=== PATIENT | male | born 1980 | race Caucasian/White ===

== ENCOUNTER 2019-12-03 11:04 | Emergency (ER) | payer OTHER ==
[~2019-12-03] VITALS: Ht 182.9 cm; Wt 81.7 kg
[2019-12-03 14:12] LABS: URINE BILIRUBIN NEGATIVE (Negative); URINE BLOOD NEGATIVE (Negative); URINE CLARITY CLEAR; URINE COLOR YELLOW; URINE GLUCOSE-RANDOM* NEGATIVE (Negative); URINE KETONES NEGATIVE (Negative); URINE LEUKOCYTES-REFLEX NEGATIVE (Negative); URINE NITRITE-REFLEX NEGATIVE (Negative); URINE PROTEIN (DIPSTICK) NEGATIVE (Negative)
[2019-12-03] MEDS ORDERED: KEFLEX500 M1 PO (14:15)
[2019-12-03] MEDS ORDERED: NORCO 5-325 TA1 EAC2 PO (14:15)
[2019-12-03] MEDS ORDERED: IBUPROFEN 600600 M1 PO (14:15)
[2019-12-03 14:39] VITALS: BP 125/89
== END 2019-12-03 14:40 | disposition home or self-care (01) ==
LOC: ER 11:04
PROVIDERS: Physician Assistant
DX: S31.21XA Laceration without foreign body of penis, initial encounter (principal); F17.210 Nicotine dependence, cigarettes, uncomplicated; Z88.8 Allergy status to other drugs, medicaments and biological substances; W22.8XXA Striking against or struck by other objects, initial encounter; Y93.89 Activity, other specified; Y92.89 Other specified places as the place of occurrence of the external cause; Y99.8 Other external cause status